=== PATIENT | female | born 1970 | race Caucasian/White ===

== ENCOUNTER → 2020-02-05 | Outpatient (CLI) | payer OTHER ==
[~2020-02-05] VITALS: Ht 162.6 cm; Wt 49.0 kg
[~2020-02-05] MED LIST: ALEVE220 MG PO; ALLEGRA ALLERG180 MG PO; LOESTRIN FE 1-1 EACH PO; NEXIUM40 M2 PO; PROBIOTIC1 EAC7 PO; SYMBICORT80 MCG/4.1 INH; VERAPAMIL ER180 M1 PO; VITAMIN D3100 GM PO
--- NOTE | ~2020-02-05 | P ---
[facility] [place] [address] PROCEDURE REPORT Name: FRANKY SANTOS Room #: REG KAISERDano Buckley.#: [id number] Admission: 02/05/20 Attend Phys: Samuel Abrams MD Discharge: Date of : 74 Report #: [id number] THIS REPORT FOR: cc: Ajit Aparicio MD, John M. MD Morgan, Richard L. MD ~ CC: Brown Abrams DATE OF SERVICE: 02/05/2020 PROCEDURE: L3-L4 epidural under fluoroscopic guidance. DESCRIPTION OF PROCEDURE: She was taken to fluoroscopic suite, placed prone, skin prepped with ChloraPrep. Skin anesthetized over the L3-L4 interspace. A 20-gauge Tuohy epidural needle was advanced first attempt into the epidural space with loss of resistance technique. There was no blood or CSF aspirated. A 1 mL of Omnipaque injected. Good spread of dye observed into the epidural space, was followed by 3 mL of 0.5% lidocaine mixed with 80 mg of triamcinolone. She tolerated the procedure well and was observed for 45 minutes and discharged. Followup visit planned as needed in the future for repeat injection. By: [id number] Samuel Abrams MD /nt
--- NOTE | ~2020-02-05 | HPC ---
[facility] [address] [place] [place] [address] PAIN MANAGEMENT CONSULTATION Name: FRANKY SANTOS Room #: REG TAMMY Zion#: [id number] Admission: 02/05/20 Attend Phys: Samuel Abrams MD Discharge: Date of : 74 Report #: [id number] THIS REPORT FOR: cc: Ajit Aparicio MD, John M. MD Morgan, Richard L. MD ~ CC: Brown Abrams DATE OF SERVICE: 02/05/2020 CHIEF COMPLAINT: Bilateral leg pain and numbness. HISTORY OF PRESENT ILLNESS: The patient is a 49-year-old very healthy and fit female who is here today with symptoms of migratory leg pain that has been going on since about September. She describes the pain in various terms including pain, achiness, occasional stabbing, cramping, burning. She also has some sensations of pins and needles to go down into both feet. She was treated conservatively with exercise followed by meloxicam and then a Medrol Dosepak. Pain has persisted. She does some gentle stretching. She has claudication pain. The pain seems to get worse when she walks. When she stops, the pain diminishes. She saw a physical therapist who has been treating her for years for some cervicalgia and diagnosed neurogenic claudication. As a descriptive term, I think that is correct. She saw Dr. Kemp and his team and that there was some consideration given to a spinal etiology with radiculopathy. An MRI was ordered, which showed annular tears at L2-L3 and L3-L4, but otherwise no significant space occupying lesions to describe her pain. MEDICATIONS: Naproxen and she has also had a trial of meloxicam, Kindra, Symbicort, Loestrin, verapamil, probiotics, vitamin D3, Nexium. ALLERGIES: TRAMADOL. PAST MEDICAL HISTORY: Remarkable for some recurring bronchitis that may be GERD related. She has some iron deficiency anemia. PAST SURGICAL HISTORY: in 2002 for twins, done with regional anesthesia at [facility]. She had some upper and lower jaw surgery in 2009. Other plastic surgery in 2010 and she had right eye muscle surgery in 1995. SOCIAL HISTORY: She is . 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 She does not smoke, enjoys alcohol a few times a week in a social setting. Impacted pain scores are highest for mood, sleep and enjoyment of life. The pain has [facility] [address] [place] [address] PAIN MANAGEMENT CONSULTATION Name: FRANKY SANTOS Room #: REG CLI [facility]#: [id number] Admission: 02/05/20 Attend Phys: Samuel Abrams MD Discharge: Date of : 74 Report #: [id number] interfered with all these activities. REVIEW OF SYSTEMS: Positive for occasional headaches and symptoms described in history of present illness. PHYSICAL EXAMINATION: GENERAL: She is very healthy, fit-appearing 49-year-old. She can independently move from sitting to standing position, her gait is nonantalgic. She is able to stand up easily and quickly and walks upright. VITAL SIGNS: She is 5 feet 4 inches, 108 pounds. Her BMI is 18.5. Her blood pressure is 133/94, heart rate 90, respirations 16, O2 sat 100. Pain intensity is 5/10. HEENT: Normal. CHEST: Clear to auscultation. CARDIAC: Rhythm is regular. MUSCULOSKELETAL: Reveals minimal tenderness across the low back. No tenderness of sacroiliac joint. She has good range of motion. Forward flexion causes only some tightness in the hamstrings and down into her calves. Strength is normal. Deep tendon reflexes are 2+ at the patella and Achilles bilaterally. She complains of some migratory changes in sensation with pins and needles. MRI report is reviewed, I do not have the films. For the most part, it looks fairly normal except with disk bulging at L3-L4 and an annular tear and also an annular tear at L2-L3. No significant spinal stenosis or neuroforaminal stenosis at any level. There is some neuroforaminal narrowing at 2-3 and 3-4 abutting against the right L2 nerve root and the right L3 nerve root. IMPRESSION: Lumbar radiculopathy secondary to annular tears. Some of this may be a chemical neuritis affected by the disc phospholipase A2. We discussed that as mechanism of symptoms. Epidural injection may provide relief over the next week or two. Followup injections will be dependent upon response. By: [id number] Samuel Abrams MD /nt
[2020-02-05 08:25] VITALS: BP 133/94
--- NOTE | 2020-02-05 08:53 | NUR ---
Pain Clinic Assessment: 1. History of Osteoarthritis: Not Applicable History of Rheumatoid Arthritis: Not Applicable 2. Height: 5 ft. 4 in. 162.6 cm. Weight: 108.0 lb. oz. 48.988 kg. Patient's BMI: 18.5 3. Vital Signs: BP: 133/94 Pulse: 90 Resp: 16 Temp: 02 Sat: 100 ECG Mon: 4. Pain Intensity: 5 5. Fall Risk: Dizziness: N Needs help standing or walking: N Fallen in the last 3 months: N Fall risk comments: 6. Patient on Blood Thinner: None 7. History of Hypertension: N 8. Opioid Therapy greater than 6 weeks: N Opiate Contract Signed: 9. Risk Assessment Tool Provided: low-1 10. Functional Assessment Tool: 54/70 11. Recreational Drug Use: Drug Type: Tobacco Use: Never Smoker Tobacco Type: Amount or Packs/day: How Many Years: Alcohol Use: Yes Frequency: Weekly Quant: 4
== END ==
LOC: PAIN 02-02 08:05
PROVIDERS: ATTEND Anesthesiology Pain Medicine
DX: M54.16 Radiculopathy, lumbar region (principal); M79.605 Pain in left leg; M79.604 Pain in right leg; K21.9 Gastro-esophageal reflux disease without esophagitis; D50.9 Iron deficiency anemia, unspecified; Z79.899 Other long term (current) drug therapy

== ENCOUNTER → 2020-03-07 | Outpatient (CLI) | payer OTHER ==
[~2020-03-07] VITALS: Ht 162.6 cm; Wt 48.9 kg
[~2020-03-07] MED LIST changes: +B12INJ PO
--- NOTE | ~2020-03-07 | HPC ---
[facility] [place] [address] [place] [address] PAIN MANAGEMENT CONSULTATION Name: FRANKY SANTOS Room #: REG TAMMY Donovan#: [id number] Admission: 03/07/20 Attend Phys: Samuel Abrams MD Discharge: Date of : 74 Report #: [id number] THIS REPORT FOR: cc: Brown Regalado MD,Brown Abrams,Samuel Shipley MD ~ CC: Brown Abrams DATE OF SERVICE: 03/07/2020 Followup visit for low back pain with annular tears. The patient returns to pain clinic today reporting significant improvement of about 70% over the course of the month following her first epidural injection. The injection was performed at level L3-L4. She has 2 levels of annular tears at L2-L3 and L3-L4. Good spread of medication was felt to cover those regions. Her pain is starting to return. We are going to repeat one more injection today and we will see if she needs to return. I am hopeful that this will manage her pain effectively and she will need further injection. We reviewed the procedure again today. Potential benefits and risks. She is anxious to proceed. IMPRESSION: Severe low back pain with radicular numbness improved and annular tears at L2-L3, L3-L4. PROCEDURE: After informed consent, she was taken to fluoroscopic suite. She was placed prone, skin prepped with ChloraPrep. Skin anesthetized over the L3-L4 interspace. A 20-gauge Tuohy epidural needle advanced first attempt into the epidural space with loss of resistance. There was no blood or CSF aspirated. A 1 mL of Omnipaque injected. Good spread of dye observed in the epidural space, was followed by 3 mL of 0.5% lidocaine mixed with 80 mg of triamcinolone. She tolerated the procedure well and was observed for 45 minutes and then discharged. Followup visit planned in the pain clinic only on an as needed basis. I did not schedule her back. By: [id number] Samuel Abrams MD /nt
[2020-03-07 10:05] VITALS: BP 128/93
--- NOTE | 2020-03-07 10:25 | NUR ---
Pain Clinic Assessment: 1. History of Osteoarthritis: Not Applicable History of Rheumatoid Arthritis: Not Applicable 2. Height: 5 ft. 4 in. 162.6 cm. Weight: 107.8 lb. oz. 48.898 kg. Patient's BMI: 18.5 3. Vital Signs: BP: 128/93 Pulse: 102 Resp: 14 Temp: 02 Sat: 100 ECG Mon: 4. Pain Intensity: 4 5. Fall Risk: Dizziness: N Needs help standing or walking: N Fallen in the last 3 months: N Fall risk comments: 6. Patient on Blood Thinner: None 7. History of Hypertension: N 8. Opioid Therapy greater than 6 weeks: N Opiate Contract Signed: 9. Risk Assessment Tool Provided: low-1 10. Functional Assessment Tool: 11. Recreational Drug Use: Never Drug Type: Tobacco Use: Never Smoker Tobacco Type: Amount or Packs/day: How Many Years: Alcohol Use: Yes Frequency: Weekly Quant: GLASS OF WINE
== END ==
LOC: PAIN 06:53
PROVIDERS: ATTEND Anesthesiology Pain Medicine
DX: M54.5 Low back pain (principal); Z79.899 Other long term (current) drug therapy

== ENCOUNTER → 2020-06-06 | Outpatient (CLI) | payer OTHER ==
[~2020-06-06] VITALS: Ht 152.4 cm; Wt 48.9 kg
[~2020-06-06] MED LIST changes: +SPIRIVA RESPIMAT4 G1
[2020-06-06 14:57] VITALS: BP 130/79
--- NOTE | 2020-06-06 15:13 | NUR ---
Pain Clinic Assessment: 1. History of Osteoarthritis: Not Applicable History of Rheumatoid Arthritis: Not Applicable 2. Height: 5 ft. 4 in. 152.4 cm. Weight: 107.8 lb. oz. 48.898 kg. Patient's BMI: 21.1 3. Vital Signs: BP: Pulse: 100 Resp: 16 Temp: 02 Sat: 98 ECG Mon: 4. Pain Intensity: 2 5. Fall Risk: Dizziness: N Needs help standing or walking: N Fallen in the last 3 months: N Fall risk comments: 6. Patient on Blood Thinner: None 7. History of Hypertension: N 8. Opioid Therapy greater than 6 weeks: N Opiate Contract Signed: 9. Risk Assessment Tool Provided: low-1 10. Functional Assessment Tool: 11. Recreational Drug Use: Never Drug Type: Tobacco Use: Never Smoker Tobacco Type: Amount or Packs/day: How Many Years: Alcohol Use: Yes Frequency: Weekly Quant: GLASS OF WINE
--- NOTE | 2020-06-06 15:27 | NUR ---
Pain Clinic Assessment: 1. History of Osteoarthritis: Not Applicable History of Rheumatoid Arthritis: Not Applicable 2. Height: 5 ft. 4 in. 152.4 cm. Weight: 107.8 lb. oz. 48.898 kg. Patient's BMI: 21.1 3. Vital Signs: BP: 130/79 Pulse: 100 Resp: 16 Temp: 02 Sat: 98 ECG Mon: 4. Pain Intensity: 2 5. Fall Risk: Dizziness: N Needs help standing or walking: N Fallen in the last 3 months: N Fall risk comments: 6. Patient on Blood Thinner: None 7. History of Hypertension: N 8. Opioid Therapy greater than 6 weeks: N Opiate Contract Signed: 9. Risk Assessment Tool Provided: low-1 10. Functional Assessment Tool: 11. Recreational Drug Use: Never Drug Type: Tobacco Use: Never Smoker Tobacco Type: Amount or Packs/day: How Many Years: Alcohol Use: Yes Frequency: Weekly Quant: GLASS OF WINE
== END | disposition home or self-care (01) ==
LOC: PAIN 05-16 13:41
PROVIDERS: ATTEND Anesthesiology Pain Medicine
DX: M54.16 Radiculopathy, lumbar region (principal); G89.29 Other chronic pain; Z98.890 Other specified postprocedural states; Z79.899 Other long term (current) drug therapy; Z88.8 Allergy status to other drugs, medicaments and biological substances